=== PATIENT | female | born 1975 | race African-American/Black ===

== ENCOUNTER 2023-01-15 06:09 | Day surgery (SDC) | payer OTHER ==
[2023-01-04 15:34] VITALS: BMI 40.6
[2023-01-15] MEDS ORDERED: PROPOFOL 160 ML ONE (07:07)
[2023-01-15] MEDS ORDERED: LIDOCAINE HCL/PF 2% SDV 5ML VIAL ONE ×2 (07:12→08:01)
[2023-01-15] MEDS ORDERED: MIDAZOLAM HCL 2 MG/2 ML SINGLE DOSE VIAL ONE (08:01)
[2023-01-15 09:26] VITALS: RESP 16; TEMP 97.7
[2023-01-15 10:03] VITALS: BP 163/86; PULSE 74
== END 2023-01-15 10:20 | disposition home or self-care (01) ==
LOC: FASU-ENDO 06:09
PROVIDERS: ATTEND Internal Medicine Gastroenterology
PROC: 0DBN8ZX Excision of Sigmoid Colon, Via Natural or Artificial Opening Endoscopic, Diagnostic (ICD-10-PCS; principal; 2023-01-15 08:41)
DX: Z12.11 Encounter for screening for malignant neoplasm of colon (principal); K63.5 Polyp of colon; K64.1 Second degree hemorrhoids
CPT/HCPCS: 81025; 88305-TC